=== PATIENT | male | born 1950 | race Hispanic/Latino ===

== ENCOUNTER 2017-02-07 15:13 | Outpatient (CLI) | payer MEDICARE, BC ==
[2017-02-07 15:31] LABS: Basophils % (Auto) 0.3 % (0.0-1.8); Hematocrit 52.1 % (35.5-45.6); Hemoglobin 17.3 gm/dl (11.8-15.2); Mean Corpuscular HGB Conc 33 % (32-34); Mean Corpuscular Hemoglobin 30 pg (28-32); Mean Corpuscular Volume 90 fl (84-94); Platelet Count 107 K/mm3 (140-440); Red Blood Count 5.79 M/mm3 (3.65-5.03); Red Cell Distribution Width 13.9 % (13.2-15.2); White Blood Count 7.6 K/mm3 (4.5-11.0)
[2017-02-07 15:46] LABS: Alanine Aminotransferase 71 units/L (7-56); Albumin/Globulin Ratio 1.3 %; Alkaline Phosphatase 92 units/L (35-129); Anion Gap 16 mmol/L; BUN/Creatinine Ratio 12.22; Blood Urea Nitrogen 11 mg/dL (9-20); Calcium 9.5 mg/dL (8.4-10.2); Carbon Dioxide 28 mmol/L (22-30); Chloride 98.7 mmol/L (98-107); Glucose 249 mg/dL (75-100); Potassium 5.2 mmol/L (3.6-5.0); Sodium 137 mmol/L (137-145); Total Protein 7.2 g/dL (6.3-8.2)
[2017-02-07] MEDS ORDERED: NACL ONE (17:26)
--- NOTE | 2017-02-07 18:24 | Cat Scan Report ---
FINAL REPORT PROCEDURE: CT ABDOMEN PELVIS W CON TECHNIQUE: Computerized axial tomography of the abdomen and pelvis was performed after the IV injection of iodinated nonionic contrast. HISTORY: LEFT LOWER QUADRANT PAIN COMPARISON: No prior studies are available for comparison. FINDINGS: Calcified granuloma is seen in the right hepatic lobe. No splenic abnormality is seen. The gallbladder and pancreas display no abnormalities. Adrenal glands and abdominal aorta are normal in size. There is partially occlusive thrombus within the portal vein without involvement of the intrahepatic portal vein branches. There are likely thrombi within portal vein branches in the mesentery. There is no evidence of colitis or small bowel inflammation. Cause of the portal vein thrombosis is uncertain. A few reactive retroperitoneal lymph nodes are seen probable small stones are seen in both kidneys without evidence of ureteral stone or hydronephrosis. Two benign cysts are seen in the right kidney, with the largest measuring 1.4 cm in diameter. Bladder is not well-distended and wall thickness cannot be accurately evaluated. Prostate gland measures 5.1 x 4.9 x 6.0 cm. There is no free pelvic fluid. Normal appendix is seen. IMPRESSION: Partially occlusive thrombus is seen within portal vein with likely occlusive thrombus within several portal vein branches in the lower abdomen. Etiology of the thrombosis is uncertain. Possible small renal stones are seen.
== END 2017-02-07 15:14 | disposition home or self-care (01) ==
LOC: CT 15:13
PROVIDERS: ATTEND Internal Medicine
DX: N28.1 Cyst of kidney, acquired (principal); K75.3 Granulomatous hepatitis, not elsewhere classified
CPT/HCPCS: 36415; 74177; 80053; 85025; Q9967